=== PATIENT | female | born 1995 | race Caucasian/White ===

== ENCOUNTER 2016-12-30 19:35 | Emergency (ER) | payer SELFPAY ==
[2016-12-30 20:24] LABS: Hematocrit 39.5 % (30.3-42.9); Hemoglobin 13.5 gm/dl (10.1-14.3); Mean Corpuscular HGB Conc 34 % (30-34); Mean Corpuscular Hemoglobin 32 pg (28-32); Mean Corpuscular Volume 93 fl (79-97); Platelet Count 170 K/mm3 (140-440); Red Blood Count 4.25 M/mm3 (3.65-5.03); Red Cell Distribution Width 13.3 % (13.2-15.2); White Blood Count 13.3 K/mm3 (4.5-11.0)
[2016-12-30 20:44] LABS: Anion Gap 19 mmol/L; BUN/Creatinine Ratio 20; Blood Urea Nitrogen 6 mg/dL (7-17); Carbon Dioxide 22 mmol/L (22-30); Chloride 98.4 mmol/L (98-107); Glucose 98 mg/dL (65-100); Potassium 4.4 mmol/L (3.6-5.0); Sodium 135 mmol/L (137-145)
[2016-12-30 20:45] LABS: Bilirubin,Urine NEG (Negative); Blood,Urine SM (Negative); Ketones,Urine NEG (Negative); Leukocyte Esterase,Urine MOD (Negative); Mucus,Urine FEW /HPF; Nitrite,Urine NEG (Negative); Protein,Urine <15 mg/dL mg/dL (Negative); Urobilinogen,Urine < 2.0 mg/dL (<2.0)
[2016-12-31] MEDS ORDERED: cefTRIAXone 1 GM in NACL 0.9% 20 ML IV ONE (02:54)
[2016-12-31] MEDS ORDERED: NACL 0.9% 1000 ML 1,000 ML IV ONE (02:54)
[2016-12-31] MEDS ORDERED: ZOFRAN IV ONE (02:55)
--- NOTE | 2016-12-31 04:12 | Emergency Department Report ---
ED General Adult HPI - General Chief complaint: Urogenital-Female Stated complaint: LOWER RIGHT ABD PAIN Time Seen by Provider: 12/31/16 02:31 Source: patient Mode of arrival: Ambulatory Limitations: No Limitations - History of Present Illness Initial comments: Patient is a 21-year-old female no significant past medical history who presents with right lower abdominal pain. Patient states symptoms have been going on for last 2 days she states that she has dysuria and feels slightly nauseous. Patient's pain is a 7 out of 10 is an achy type of pain that radiates to her pelvic area nothing makes it better or urinating makes it worse. Patient states that this is the symptoms she has when she has a UTI. - Related Data Previous Rx's Medication Instructions Recorded Last Taken Type Naproxen 250 mg PO BID PRN #20 tablet 12/31/16 Unknown Rx Sulfamethoxazole/Trimethoprim 1 each PO BID #14 tablet 12/31/16 Unknown Rx [Bactrim DS TAB] Allergies Allergy/AdvReac Type Severity Reaction Status Date / Time No Known Allergies Allergy Unverified 12/30/16 20:09 ED Review of Systems ROS: Stated complaint: LOWER RIGHT ABD PAIN Other details as noted in HPI Constitutional: denies: chills, fever Eyes: denies: eye pain, eye discharge, vision change ENT: denies: ear pain, throat pain Respiratory: denies: cough, shortness of breath, wheezing Cardiovascular: denies: chest pain, palpitations Endocrine: no symptoms reported Gastrointestinal: abdominal pain. denies: nausea, diarrhea Genitourinary: dysuria. denies: urgency, discharge Musculoskeletal: denies: back pain, joint swelling, arthralgia Skin: denies: rash, lesions Neurological: denies: headache, weakness, paresthesias Psychiatric: denies: anxiety, depression Hematological/Lymphatic: denies: easy bleeding, easy bruising ED Past Medical Hx - Past Medical History Additional medical history: interstital cystitis - Surgical History Additional Surgical History: balloon to expand bladder - Social History Smoking Status: Current Some Day Smoker Substance Use Type: Alcohol - Medications Home Medications: Home Medications Medication Instructions Recorded Confirmed Last Taken Type Naproxen 250 mg PO BID PRN #20 tablet 12/31/16 Unknown Rx Sulfamethoxazole/Trimethoprim 1 each PO BID #14 tablet 12/31/16 Unknown Rx [Bactrim DS TAB] ED Physical Exam - General Limitations: No Limitations General appearance: alert, in no apparent distress - Head Head exam: Present: atraumatic, normocephalic - Eye Eye exam: Present: normal appearance - ENT ENT exam: Present: mucous membranes moist - Neck Neck exam: Present: normal inspection - Respiratory Respiratory exam: Present: normal lung sounds bilaterally. Absent: respiratory distress - Cardiovascular Cardiovascular Exam: Present: regular rate, normal rhythm. Absent: systolic murmur, diastolic murmur, rubs, gallop - GI/Abdominal GI/Abdominal exam: Present: soft, normal bowel sounds - Extremities Exam Extremities exam: Present: normal inspection - Back Exam Back exam: Present: CVA tenderness (R) - Neurological Exam Neurological exam: Present: alert, oriented X3 - Psychiatric Psychiatric exam: Present: normal affect, normal mood - Skin Skin exam: Present: warm, dry, intact, normal color. Absent: rash ED Course Vital Signs 12/30/16 12/30/16 12/31/16 20:03 23:51 01:37 Temperature 99.8 F H 97.8 F Pulse Rate 124 H 109 H 143 H Respiratory 18 18 Rate Blood Pressure 134/70 139/71 O2 Sat by Pulse 98 98 Oximetry 12/31/16 12/31/16 12/31/16 01:46 01:50 02:00 Temperature 100.1 F H Pulse Rate 116 H 105 H Respiratory 34 H 22 13 Rate Blood Pressure 128/70 128/70 O2 Sat by Pulse 96 98 Oximetry 12/31/16 12/31/16 12/31/16 02:16 02:30 02:46 Temperature Pulse Rate 107 H 112 H 108 H Respiratory 15 17 15 Rate Blood Pressure 115/66 115/66 109/42 O2 Sat by Pulse 98 95 95 Oximetry 12/31/16 12/31/16 12/31/16 03:00 03:16 03:30 Temperature Pulse Rate 116 H 123 H 103 H Respiratory 18 26 H 19 Rate Blood Pressure 112/49 112/49 112/49 O2 Sat by Pulse 95 95 95 Oximetry 12/31/16 03:56 Temperature 99.6 F Pulse Rate Respiratory Rate Blood Pressure O2 Sat by Pulse Oximetry ED Medical Decision Making - Lab Data Result diagrams: 12/30/16 20:13 12/30/16 20:13 Labs 12/30/16 12/30/16 12/30/16 20:13 20:13 20:29 WBC 13.3 H RBC 4.25 Hgb 13.5 Hct 39.5 MCV 93 MCH 32 MCHC 34 RDW 13.3 Plt Count 170 Sodium 135 L Potassium 4.4 Chloride 98.4 Carbon Dioxide 22 Anion Gap 19 BUN 6 L Creatinine 0.3 L Estimated GFR > 60 BUN/Creatinine Ratio 20 Glucose 98 Calcium 9.0 Urine Color Yellow Urine Turbidity Clear Urine pH 5.0 Ur Specific [place] 1.008 Urine Protein <15 mg/dl Urine Glucose (UA) Neg Urine Ketones Neg Urine Blood Sm Urine Nitrite Neg Ur Reducing Substances Not Reportable Urine Bilirubin Neg Urine Ictotest Not Reportable Urine Urobilinogen < 2.0 Ur Leukocyte Esterase Mod Urine WBC (Auto) 77.0 H Urine RBC (Auto) 4.0 U Epithel Cells (Auto) 5.0 Urine Mucus Few Urine HCG, Qual Negative - Medical Decision Making Medical diagnosis: UTI differential medical diagnosis: Gastritis, pancreatitis, hyponatremia, hyperkalemia I will get CBC, CMP, IV fluids, IV antibiotics, urinalysis and IV Zofran Patient has a UTI patient is feeling better after IV antibiotics and IV fluids also patient home with oral Bactrim and Naprosyn for pain discussed plan with patient she agrees with plan. Additional verbal discharge instructions where given Critical care attestation.: If time is entered above; I have spent that time in minutes in the direct care of this critically ill patient, excluding procedure time. ED Disposition Clinical Impression: Right flank pain UTI (urinary tract infection) Qualifiers: Urinary tract infection type: acute cystitis Hematuria presence: without hematuria Qualified Code(s): N30.00 - Acute cystitis without hematuria Disposition: TO HOME OR SELFCARE Is pt being admited?: No Does the pt Need Aspirin: No Condition: Stable Instructions: Urinary Tract Infection in Women (ED) Prescriptions: Naproxen 250 mg PO BID PRN #20 tablet PRN Reason: Pain Sulfamethoxazole/Trimethoprim [Bactrim DS TAB] 1 each PO BID #14 tablet Referrals: CM CULVER MD [Staff Physician] - 3-5 Days
[2016-12-31 04:20] VITALS: BP 113/69
== END 2016-12-31 04:20 | disposition home or self-care (01) ==
LOC: ED 19:35
DX: N30.00 Acute cystitis without hematuria (principal); R10.31 Right lower quadrant pain; F17.200 Nicotine dependence, unspecified, uncomplicated
CPT/HCPCS: 36415; 80048; 81001; 81025; 85027; 96374; 96375; 99283; J0696; J2405; J7030

== ENCOUNTER 2018-10-14 10:16 | Emergency (ER) | payer SELFPAY ==
[2018-10-14 10:23] VITALS: BP 129/79
[2018-10-14 11:04] LABS: Bacteria,Urine 1+ /HPF (Negative); Bilirubin,Urine NEG (Negative); Blood,Urine MOD (Negative); Color,Urine Yellow (Yellow); Mucus,Urine FEW /HPF; Urobilinogen,Urine < 2.0 mg/dL (<2.0)
[2018-10-14 11:05] LABS: HCG Qualitative,Urine Negative (Negative); WBC,Urine > 182.0 /HPF (0.0-6.0)
[2018-10-14] MEDS ORDERED: LEVAQUIN PO ONE (12:23)
[2018-10-14] MEDS ORDERED: ZOFRAN ODT PO ONE (12:23)
[2018-10-14] MEDS ORDERED: IBUPROFEN PO ONE (12:23)
[2018-10-14] MEDS ORDERED: NORCO 5/325 PO ONE (12:23)
--- NOTE | 2018-10-14 13:12 | Emergency Department Report ---
ED Female HPI - General Chief complaint: Urogenital-Female Stated complaint: FEVER/BACK PAIN/BODYACHES Time Seen by Provider: 10/14/18 12:13 Source: patient Mode of arrival: Ambulatory Limitations: No Limitations - History of Present Illness Initial comments: Patient is a 23-year-old female who is complaining of one week of lower back pain and suprapubic pain and dysuria. Patient has a history of interstitial cystitis. Patient states she spiked a temperature today. Patient had one episode of nausea and vomiting yesterday which is now resolved. Patient has dysuria and probably urea. Patient denies any diarrhea vaginal discharge or abnormal vaginal bleeding. - Related Data Previous Rx's Medication Instructions Recorded Last Taken Type Naproxen 250 mg PO BID PRN #20 tablet 12/31/16 Unknown Rx Sulfamethoxazole/Trimethoprim 1 each PO BID #14 tablet 12/31/16 Unknown Rx [Bactrim DS TAB] Metoclopramide [Reglan] 10 mg PO TID PRN #12 tab 10/14/18 Unknown Rx Ondansetron [Zofran Odt] 4 mg PO Q8HR #10 tab.rapdis 10/14/18 Unknown Rx Phenazopyridine [Pyridium] 200 mg PO BID #6 tab 10/14/18 Unknown Rx levoFLOXacin [Levaquin TAB] 500 mg PO QDAY #7 tablet 10/14/18 Unknown Rx traMADol [Ultram] 50 mg PO Q6HR PRN #12 tablet 10/14/18 Unknown Rx Allergies Allergy/AdvReac Type Severity Reaction Status Date / Time No Known Allergies Allergy Unverified 12/30/16 20:09 ED Review of Systems ROS: Stated complaint: FEVER/BACK PAIN/BODYACHES Other details as noted in HPI Comment: All other systems reviewed and negative ED Past Medical Hx - Past Medical History Previous Medical History?: Yes Additional medical history: interstital cystitis - Surgical History Past Surgical History?: Yes Additional Surgical History: balloon to expand bladder - Social History Smoking Status: Never Smoker Substance Use Type: None - Medications Home Medications: Home Medications Medication Instructions Recorded Confirmed Last Taken Type Naproxen 250 mg PO BID PRN #20 tablet 12/31/16 Unknown Rx Sulfamethoxazole/Trimethoprim 1 each PO BID #14 tablet 12/31/16 Unknown Rx [Bactrim DS TAB] Metoclopramide [Reglan] 10 mg PO TID PRN #12 tab 10/14/18 Unknown Rx Ondansetron [Zofran Odt] 4 mg PO Q8HR #10 tab.rapdis 10/14/18 Unknown Rx Phenazopyridine [Pyridium] 200 mg PO BID #6 tab 10/14/18 Unknown Rx levoFLOXacin [Levaquin TAB] 500 mg PO QDAY #7 tablet 10/14/18 Unknown Rx traMADol [Ultram] 50 mg PO Q6HR PRN #12 tablet 10/14/18 Unknown Rx ED Physical Exam - General Limitations: No Limitations General appearance: alert, in no apparent distress - Head Head exam: Present: atraumatic, normocephalic - Eye Eye exam: Present: normal appearance - ENT ENT exam: Present: mucous membranes moist - Neck Neck exam: Present: normal inspection - Respiratory Respiratory exam: Present: normal lung sounds bilaterally. Absent: respiratory distress, wheezes, rales, rhonchi - Cardiovascular Cardiovascular Exam: Present: regular rate, normal rhythm, normal heart sounds. Absent: systolic murmur, diastolic murmur, rubs, gallop - GI/Abdominal GI/Abdominal exam: Present: soft, tenderness (suprapubic), normal bowel sounds. Absent: distended, guarding, rebound, rigid - Extremities Exam Extremities exam: Present: normal inspection - Back Exam Back exam: Present: normal inspection - Neurological Exam Neurological exam: Present: alert, oriented X3 - Psychiatric Psychiatric exam: Present: normal affect, normal mood - Skin Skin exam: Present: warm, dry, intact, normal color. Absent: rash ED Course Vital Signs 10/14/18 10:21 Temperature 100.7 F H Pulse Rate 114 H Respiratory 19 Rate Blood Pressure 129/79 [Left] O2 Sat by Pulse 98 Oximetry ED Medical Decision Making - Lab Data Lab Results 10/14/18 Range/Units 10:30 Urine Color Yellow (Yellow) Urine Turbidity Cloudy (Clear) Urine pH 8.0 H (5.0-7.0) Ur Specific [place] 1.015 (1.003-1.030) Urine Protein 100 mg/dl (Negative) mg/dL Urine Glucose (UA) Neg (Negative) mg/dL Urine Ketones Neg (Negative) mg/dL Urine Blood Mod (Negative) Urine Nitrite Neg (Negative) Urine Bilirubin Neg (Negative) Urine Urobilinogen < 2.0 (<2.0) mg/dL Ur Leukocyte Esterase Lg (Negative) Urine WBC (Auto) > 182.0 H (0.0-6.0) /HPF Urine RBC (Auto) 38.0 (0.0-6.0) /HPF U Epithel Cells (Auto) 6.0 (0-13.0) /HPF Urine Bacteria (Auto) 1+ (Negative) /HPF Urine WBC Clumps 3+ /HPF Urine Mucus Few /HPF Urine Yeast (Budding) 3+ /HPF Urine HCG, Qual Negative (Negative) - Medical Decision Making Patient be started on Levaquin for acute cystitis. Patient given medications for symptomatic relief and she'll be discharged home. Critical care attestation.: If time is entered above; I have spent that time in minutes in the direct care of this critically ill patient, excluding procedure time. ED Disposition Clinical Impression: Acute cystitis Disposition: DC-01 TO HOME OR SELFCARE Is pt being admited?: No Does the pt Need Aspirin: No Condition: Stable Instructions: Urinary Tract Infection in Women (ED) Referrals: SERGIO CRAFT MD [Primary Care Provider] - 3-5 Days Time of Disposition: 13:11
== END 2018-10-14 13:18 | disposition home or self-care (01) ==
LOC: ED 10:16
DX: N30.10 Interstitial cystitis (chronic) without hematuria (principal); Z79.899 Other long term (current) drug therapy
CPT/HCPCS: 81001; 81025; Q0162